=== PATIENT | male | born 1995 | race Caucasian/White ===

== ENCOUNTER 2018-03-28 02:08 | Emergency (ER) | payer SELFPAY ==
[2018-03-28 02:12] VITALS: BP 161/92
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
[2018-03-28] MEDS ORDERED: KETOROLAC 30 MG/ML VIAL IVP ONE (02:35)
[2018-03-28 02:45] LABS: PLATELET COUNT, AUTOMATED 246 K/uL (150-450)
--- NOTE | 2018-03-28 03:21 | RADIOLOGY IMAGING REPORT ---
FACILITY: [facility] - [place] PATIENT NAME: Brent Barajas : 1995 MR: [id number] V: [id number] EXAM DATE: ORDERING PHYSICIAN: KENYON VILLEGAS TECHNOLOGIST: Location: [facility] [place] Patient: Brent Barajas : 1995 Visit/Account:[id number] Date of Sevice: 03/28/2018 AP CHEST 03/28/2018 2:34 AM. INDICATION: chest pain COMPARISON: None. FINDINGS: Lungs are well-expanded. There is no consolidation. No pleural effusion or pneumothorax. Heart size i s normal. IMPRESSION: No acute abnormality. Report Dictated By: Moose Barber MD at 03/28/2018 3:02 AM Report E-Signed By: Moose Barber MD at 03/28/2018 3:03 AM WSN:[id number]
--- NOTE | 2018-03-28 16:23 | EKG ---
FACILITY: [facility] - [place] PATIENT NAME: SARAH GATES : [id number] MR: [id number] V: [id number] EXAM DATE: ORDERING PHYSICIAN: KENYON VILLEGAS TECHNOLOGIST: ALBERTINA Sweet Reason : Blood Pressure : / mmHG Vent. Rate : 109 BPM Atrial Rate : 109 BPM P-R Int : 136 ms QRS Dur : 080 ms QT Int : 332 ms P-R-T Axes : 041 063 -04 degrees QTc Int : 447 ms Sinus tachycardia Diffuse artifact - repeat if needed Abnormal ECG No previous ECGs available Confirmed by LISA AVITIA ([id number] on 03/29/2018 6:02:34 AM Referred By: Confirmed By:LISA AVITIA
== END 2018-03-28 03:13 ==
LOC: ER 02:21
DX: R07.9 Chest pain, unspecified (principal); F10.920 Alcohol use, unspecified with intoxication, uncomplicated; Y90.7 Blood alcohol level of 200-239 mg/100 ml
CPT/HCPCS: 71045; 80320; 84484; 85025; 93005; 96374; 99283; J1885; 82040; 82247; 82310; 82374; 82435; 82565; 82947; 84075; 84132; 84155; 84295; 84450; 84460; 84520

== ENCOUNTER → 2018-03-28 | Outpatient (CLI) | payer SELFPAY | LOC: AMB 01:56 | PROVIDERS: ATTEND Nurse Practitioner | DX: R41.82 Altered mental status, unspecified (principal); R73.9 Hyperglycemia, unspecified; R06.02 Shortness of breath; R07.9 Chest pain, unspecified; R45.1 Restlessness and agitation | CPT/HCPCS: A0425; A0427 ==